=== PATIENT | male | born 1970 | race Two or more races ===

== ENCOUNTER 2025-03-24 11:10 | Day surgery (SDC) | payer BC, SELFPAY ==
[2025-03-23 12:15] VITALS: BMI 29.0
[2025-03-23 13:25] LABS: Basophils # (Auto) 0.1 Thou/mm3 (0.0-0.2); Basophils % (Auto) 1 % (0-2.5); Eosinophils # (Auto) 0.2 Thou/mm3 (0.0-0.5); Eosinophils % (Auto) 3 % (0-10); Hematocrit 44.9 % (41.0-53.0); Hemoglobin 15.2 g/dL (13.5-16.0); Immature Granulocytes Auto 0.08 Thou/mm3 (0.00-0.00); Lymphocytes # (Auto) 3.4 Thou/mm3 (1.0-4.8); Lymphocytes % (Auto) 38 % (10-50); Mean Corpuscular HGB Conc 33.9 g/dl (31.0-37.0); Mean Corpuscular Hemoglobin 30.8 pg (25.0-35.0); Mean Corpuscular Volume 91 fL (80-100); Monocytes # (Auto) 0.6 Thou/mm3 (0.0-0.8); Monocytes % (Auto) 7 % (0-12); Neutrophils # (Auto) 4.5 Thou/mm3 (1.8-7.7); Neutrophils % (Auto) 50 % (37-80); Nucleated Red Blood Cell # 0.00 Thou/mm3 (0.00-0.00); Nucleated Red Blood Cell % 0 /100 WBC (0); Platelet Count 262 Thou/mm3 (140-440); RDW Standard Deviation 41.6 fL (35.1-43.9); Red Blood Count 4.93 Miln/mm3 (4.50-5.90); White Blood Count 9.0 Thou/mm3 (3.8-10.6)
[2025-03-23 13:32] LABS: Anion Gap 9 (7-16); BUN/Creatinine Ratio 14 Ratio (12-20); Blood Urea Nitrogen 11 mg/dL (9-23); Calcium 9.4 mg/dL (8.3-10.6); Carbon Dioxide 28.5 mMol/L (20.0-31.0); Chloride 106 mMol/L (98-107); Creatinine (Component) 0.8 mg/dL (0.6-1.3); Estimated Creatinine Clearance 110.3 mL/min (>60); Glucose 98 mg/dL (74-106); Osmolality,Calculated 284 (275-295); Potassium 4.5 mMol/L (3.4-5.1); Sodium 143 mMol/L (136-145); eGFR > 60 See Note
[2025-03-24] VITALS (10 sets, daily range): BP systolic 111–152; BP diastolic 68–88; PULSE 54–69; RESP 12–20; TEMP 36.1–36.4; O2SAT 93–98; BMI 28.3
--- NOTE | 2025-03-24 13:51 | PD.SUROPNT ---
Date of Procedure 03/24/25 Pre Op Diagnosis Incarcerated right inguinal hernia Post Op Diagnosis Incarcerated right inguinal hernia Large lipoma of the spermatic cord Procedure Repair of incarcerated right inguinal hernia with mesh Excision of lipoma of the spermatic cord Findings Indirect right inguinal hernia with incarcerated small bowel. Large lipoma of the spermatic cord Procedure Description Patient brought into the operating room in supine position. After administration of general endotracheal anesthesia, patient's right groin was shaved, prepped and draped in standard surgical manner. The right inguinal crease was anesthetized with half percent Marcaine. An approximately 8 cm incision was made and dissection was carried to subcutaneous tissue. The Tessa's fascia was divided and the external oblique aponeurosis was opened towards the external ring. The hernia sac and the spermatic cord structures were from the posterior aspect of the external oblique aponeurosis at the level of pubic tubercle. The hernia sac was then meticulously dissected off the spermatic cord structures at the level of internal ring. Patient was noted to have indirect right inguinal hernia sac. The hernia sac was opened and the contents that were incarcerated small bowel, reduced. The hernia sac was then ligated at the level of internal ring. Patient was also noted to have large lipoma of the spermatic cord. Lipoma was meticulously dissected out spermatic cord structures and ligated at the level of internal ring. The floor of inguinal canal was then reconstructed with ultra Pro proceed mesh. The mesh was secured with running 2-0 Prolene suture. The mesh secured medially to the pubic tubercle, superiorly into the conjoin tendon, inferiorly and to the shelving edge of inguinal ligament, the mesh was placed around the cord structures and tacked under the external oblique aponeurosis laterally. The area was copiously and thoroughly washed and irrigated, all the fluids were suctioned and the suction fluid returned clear. Hemostasis was adequate and satisfactory. External oblique aponeurosis was closed with running 2-0 Vicryl suture, and Tessa's fascia was closed with interrupted suture using 3-0 Vicryl. The incision was closed with 4-0 Monocryl in subcutaneous fashion. Instruments, needles and sponge counts were reported to be correct ?2. Patient tolerated the procedure well. He was extubated, breathing spontaneously and without difficulty and was transferred to postanesthesia care in stable condition. Anesthesia GETA and local Pathology / specimen Other (Hernia sac, lipoma of the spermatic cord) Estimated Blood Loss 10 Condition Stable Disposition PACU Surgeon Ortega Payan MD Surgical Staff Operation Date: 03/24/25 14:15 Case Staff Anesthesiologist: Vince Mejia RN First Assistant: Yue Partida
--- NOTE | 2025-03-24 13:55 | SUR.PHASEI ---
1355: Pt. arrived with oral airway in place, vitals stable, breathing unlabored, no signs of distress, dressing to right lower ABD CDI, no active bleed noted, report received from Jatin MACIAS and MD Mejia.
[2025-03-24] MEDS: HYDROcodone/APAP 5/325 TABLET 1 TAB PO (15:14)
--- NOTE | 2025-03-24 15:25 | SUR.PHASEII ---
1525: Pt. AAOx4, vitals stable, breathing unlabored, complaint of slight pain, no complaint of nausea, dressing to right lower ABD CDI, no active bleed noted, pt. tolerated sips of water well, pt. ambulated to wheelchair with steady gait and no assist, no complications. Gave discharge isntructions to the pt. and his ride using valve steamer Edgard GuyW. Both verbalized understanding and had no further questions. Pt. left with all personal belongings.
== END 2025-03-24 15:25 | disposition home or self-care (01) ==
PROVIDERS: PCP Family Medicine; Referring Provider Surgery; Visit Provider Surgery
PROC: (CPT 49507; principal; 2025-03-24 14:00)
DX: K40.30 Unilateral inguinal hernia, with obstruction, without gangrene, not specified as recurrent (principal); D17.6 Benign lipomatous neoplasm of spermatic cord
CPT/HCPCS: 49507; 36415; 80048; 85025; A4217; A4649; C1781; J0131; J0694; J1100; J1885; J2250; J2405; J2704; J3010; J3490; A9270